=== PATIENT | male | born 1995 | race Caucasian/White ===

== ENCOUNTER 2024-06-16 17:29 | Emergency (ER) | payer OTHER ==
[~2024-06-16] VITALS: Wt 106.6 kg
[~2024-06-16 17:29] MED LIST: NKHM PO; ZYRTEC10 MG PO; Zofran4 MG PO
[2024-06-16 18:37] LABS: BASO # 0.1 10*3/uL (0.0-0.1); BASO % 0.4 % (0.0-1.0); EOS # 0.3 10*3/uL (0.0-0.4); EOS % 2.2 % (1.0-4.0); HEMATOCRIT 43.7 % (42.0-52.0); LYMPH # 3.5 10*3/uL (1.3-4.4); LYMPH % 30.7 % (27.0-41.0); MEAN CELL VOLUME 85.9 fl (80.0-94.0); MEAN CORPUSCULAR HGB 28.3 pg (27.0-31.0); MEAN PLATELET VOLUME 8.6 fl (9.6-12.3); MONO # 1.1 10*3/uL (0.1-1.0); MONO % 9.4 % (3.0-9.0); NEUT # 6.5 10*3/uL (2.3-7.9); NEUT % 57.1 % (47.0-73.0); PLATELET COUNT AUTOMATED 345 10*3/uL (130-400); RED BLOOD COUNT 5.09 10*6/uL (4.50-5.90); RED CELL DISTRI WIDTH 12.8 % (0-14.5); WHITE BLOOD COUNT 11.4 10*3/uL (4.8-10.8)
[2024-06-16 18:59] LABS: BUN 13 mg/dl (9-23); CHLORIDE 101 mmol/L (98-107); POTASSIUM 3.8 mmol/L (3.4-5.1)
== END 2024-06-16 19:09 | disposition short-term general hospital (02) ==
LOC: ED 17:29
PROVIDERS: Physician Assistant Medical
DX: J95.830 Postprocedural hemorrhage of a respiratory system organ or structure following a respiratory system procedure (principal); Z88.1 Allergy status to other antibiotic agents; Z90.49 Acquired absence of other specified parts of digestive tract; Z90.89 Acquired absence of other organs

== ENCOUNTER 2024-07-15 20:21 | Emergency (ER) | payer OTHER ==
[~2024-07-15] VITALS: Ht 190.5 cm; Wt 99.8 kg
[2024-07-15] MEDS ORDERED: Rabies Immune Globulin 300 UNIT/2 ML VIAL IM ONE (20:50)
[2024-07-15] MEDS ORDERED: Rabies Vaccine 1 ML VIAL IM ONE (20:50)
[2024-07-15] MEDS ORDERED: Tdap Vaccine 0.5 ML SYR (Adult Vaccine) IM ONE (20:50)
[2024-07-15] MEDS ORDERED: Amoxicillin/Clavulanate Pota 500 MG TAB PO ONE (20:50)
[2024-07-15] MEDS ORDERED: AMOX-CLAV 875-1 EACH PO (20:53)
[2024-07-15] MEDS ORDERED: RABIES IMMUNE GLOBULIN U RABIES IMMUNE GLOBULIN U IM ONE (21:00)
== END 2024-07-15 21:41 | disposition home or self-care (01) ==
LOC: ED 20:21
DX: S70.312A Abrasion, left thigh, initial encounter (principal); I10 Essential (primary) hypertension; Z23 Encounter for immunization; Z90.89 Acquired absence of other organs; Z90.49 Acquired absence of other specified parts of digestive tract; W54.0XXA Bitten by dog, initial encounter; Y93.89 Activity, other specified; Y92.009 Unspecified place in unspecified non-institutional (private) residence as the place of occurrence of the external cause; Y99.8 Other external cause status

== ENCOUNTER 2024-07-18 19:48 | Emergency (ER) | payer OTHER ==
[~2024-07-18] VITALS: Ht 190.5 cm; Wt 98.9 kg
[~2024-07-18 19:48] MED LIST changes: +AMOX-CLAV 875-1 EACH PO
[2024-07-18] MEDS ORDERED: Rabies Vaccine 1 ML VIAL IM ONE (20:30)
== END 2024-07-18 20:37 | disposition home or self-care (01) ==
LOC: ED 19:48
DX: Z23 Encounter for immunization (principal); I10 Essential (primary) hypertension; F90.9 Attention-deficit hyperactivity disorder, unspecified type; Z90.89 Acquired absence of other organs; Z90.49 Acquired absence of other specified parts of digestive tract

== ENCOUNTER 2024-07-22 19:33 | Emergency (ER) | payer OTHER ==
[~2024-07-22] VITALS: Ht 190.5 cm; Wt 98.9 kg
[2024-07-22] MEDS ORDERED: Rabies Vaccine 1 ML VIAL IM ONE (20:00)
== END 2024-07-22 20:10 | disposition home or self-care (01) ==
LOC: ED 19:33
DX: S71.152D Open bite, left thigh, subsequent encounter (principal); Z23 Encounter for immunization; W54.0XXD Bitten by dog, subsequent encounter

== ENCOUNTER 2024-07-29 19:09 | Emergency (ER) | payer OTHER ==
[~2024-07-29] VITALS: Wt 99.8 kg
[2024-07-29] MEDS ORDERED: Rabies Vaccine 1 ML VIAL IM ONE (19:15)
== END 2024-07-29 19:30 | disposition home or self-care (01) ==
LOC: ED 19:09
DX: Z23 Encounter for immunization (principal); I10 Essential (primary) hypertension; F90.9 Attention-deficit hyperactivity disorder, unspecified type; Z90.49 Acquired absence of other specified parts of digestive tract; Z90.89 Acquired absence of other organs